=== PATIENT | male | born 1995 | race Caucasian/White ===

== ENCOUNTER 2021-02-08 07:57 | Day surgery (SDC) | payer OTHER ==
[~2021-02-08] VITALS: Ht 182.9 cm; Wt 105.3 kg
[~2021-02-08 07:57] MED LIST: LR 1,000 ML IV ONE; NAPR500T6 PO
[2021-02-08] MEDS ORDERED: DOXY-350 PO (08:29)
[2021-02-08] MEDS ORDERED: PERCOCET PO (08:29)
[2021-02-08] MEDS ORDERED: propofoL 200 MG/20 ML VIAL As Ordered ONE ×2 (08:50→09:27)
[2021-02-08] MEDS ORDERED: LIDOCAINE 2% 100MG/5ML SDV (FOR ANES.) As Ordered ONE ×2 (08:50→10:21)
[2021-02-08] MEDS ORDERED: ROCURONIUM BROMIDE 50 MG/5 ML VIAL As Ordered ONE ×2 (08:50→09:51)
[2021-02-08] MEDS ORDERED: MIDAZOLAM INJ 2MG/2ML VIAL (J2250 PER 1MG) As Ordered ONE (08:51)
[2021-02-08] MEDS ORDERED: fentaNYL 250 MCG/5 ML INJECTION (J3010) As Ordered ONE (08:51)
[2021-02-08] MEDS ORDERED: METHYLENE BLUE 0.5% (5MG/ML) 10 ML AMP (PROVAYBLUE) As Ordered ONE (08:53)
[2021-02-08] MEDS ORDERED: LIDOCAINE W/EPINEPHRINE 1% 20ML VIAL As Ordered ONE (08:53)
[2021-02-08] MEDS ORDERED: OXYMETAZOLINE 0.05% NASAL SPRAY (AFRIN) As Ordered ONE (08:53)
[2021-02-08] MEDS ORDERED: dexameTHASONE 4 MG/ML 1ML VIAL (J1100 PER 1MG) As Ordered ONE ×2 (09:37→10:56)
[2021-02-08] MEDS ORDERED: ACETAMINOPHEN 1000MG 100ML IV BTL (OFIRMEV) (J0131 PER 10MG) As Ordered ONE (09:39)
[2021-02-08] MEDS ORDERED: SUGAMMADEX SODIUM 500 MG/5 ML VIAL (BRIDION) As Ordered ONE (09:51)
[2021-02-08] MEDS ORDERED: ONDANSETRON 4MG/2ML VIAL As Ordered ONE (09:51)
[2021-02-08] MEDS ORDERED: METOCLOPRAMIDE INJ 10MG/2ML VIAL (J2765 PER 1) As Ordered ONE (09:51)
[2021-02-08] MEDS ORDERED: oxyCODONE 5MG TAB PO PRN (11:00)
[2021-02-08] MEDS ORDERED: fentaNYL 100 MCG/2 ML INJECTION (J3010) IV PRN (11:00)
[2021-02-08] MEDS ORDERED: ONDANSETRON 4MG/2ML VIAL IV PRN (11:00)
[2021-02-08] MEDS ORDERED: LR 1,000 ML IV SCH (11:00)
[2021-02-08 11:45] VITALS: BP 128/69
[2021-02-09] MEDS ORDERED: UNRESOLVED CLARIFICATION ENTRY XX SCH (00:01)
--- NOTE | 2021-02-10 10:21 | RO ---
OPERATIVE NOTE DATE OF OPERATION: 02/08/2021 PREOPERATIVE DIAGNOSIS: Deviated septum, chronic rhinitis. POSTOPERATIVE DIAGNOSIS: Deviated septum, chronic rhinitis. PROCEDURE: Septoplasty, partial reduction of inferior turbinates. SURGEON: Adam Vanegas MD GARMENT EXAMINER: ANESTHESIA: INDICATIONS: A 25 year old with a long history of nasal obstruction following nasal injury. DESCRIPTION OF PROCEDURE: Satisfactory general endotracheal anesthesia administered. Pharyngeal pack placed and the nose prepared for surgery by placing cotton-soaked pledgets with Afrin solution into nasal cavity bilaterally. 1% Xylocaine with 1:100,000 epinephrine was used to inject into the nasal septum and inferior turbinates. A [place]ndon incision was made on the left side of the nose. A mucoperichondrial flap and envelope was created on the left side of the nasal septum and carried down to the junction of the bony and cartilaginous septum. This was then with an elevator, and an envelope was then created on the right side of the septum. A Patrick scissors was used to make a cut high in the perpendicular plate in the midportion of the vomer, and a central segment of the bony septum was resected. Next, with the round knife on the Lizbeth elevator, a strip of cartilage was resected from the floor of the nose, mobilizing the quadrilateral cartilage and creating a swinging door. Then, a central segment of cartilaginous septum was resected, preserving a 1 cm dorsal and caudal strut. Double-action rongeur was used to take down deflected portions of the perpendicular plate, as well. Finally, the maxillary crest spur was taken down after elevating mucoperiosteum off both sides of it with a chisel. A segment of the resected cartilage was morselized and placed back into the septal envelope. The incision was closed using an interrupted #5-0 chromic suture. Then, a #4-0 plain suture was placed in a [id number] fashion through the two leaves of mucoperichondrium to appose them. Next, turbinate surgery done. He had markedly hypertrophic turbinates. They were medially infractured and using the turbinate Coblator probe, two parallel passes of the probe were made with 10 second coblation times for each of the set points on the probe. Finally, suction cautery used to coagulate the posterior inferior tip of the inferior turbinate. Mack splints were placed in the nose and sewn to the columella with #2-0 Prolene suture. The pharyngeal pack was removed and the throat suctioned. The patient was awakened, extubated, and sent to recovery in satisfactory condition. He will be discharged on Percocet for pain. He will be seen in the office in one week. He will be discharged on Percocet for pain and doxycycline 100 mg b.i.d. He will be seen in the office in three days.
== END 2021-02-08 11:59 | disposition home or self-care (01) ==
LOC: M SDC 07:57
PROVIDERS: ATTEND Specialist
DX: J34.2 Deviated nasal septum (principal); J31.0 Chronic rhinitis; F17.220 Nicotine dependence, chewing tobacco, uncomplicated
CPT/HCPCS: 30140; 30520; 88300; J0131; J1100; J2250; J2405; J2765; J3010; Q9968

== ENCOUNTER → 2021-06-13 | Outpatient (REF) ==
[~2021-06-13] MED LIST changes: +DOXY-350 PO; -LR 1,000 ML IV ONE; +PERCOCET PO
== END ==
LOC: M PLAIMG 14:23
PROVIDERS: ATTEND Internal Medicine
DX: R06.02 Shortness of breath (principal)